=== PATIENT | female | born 1955 | race Caucasian/White ===

== ENCOUNTER → 2016-10-12 | Outpatient (CLI) | payer OTHER ==
--- NOTE | 2016-10-12 17:11 | DX ---
Right Hand - Two Views Indication: Arthritis. Flaring pain. Technique: PA and oblique view. Comparison: Right hand series dated October 31, 2015. Findings: The right 5th proximal interphalangeal joint has worsening erosive osteoarthritis evidence d by gullwing deformities and exuberant osteophytes and severe joint space narrowing. Erosive arthri tis involving the distal interphalangeal joint of the 2nd and 3rd fingers and 1st metacarpocarpal karley nt are unchanged. Impression: Erosive osteoarthritis with progression of disease at the right 5th PIP joint.
== END ==
LOC: BMCIMAGING 16:31
PROVIDERS: ATTEND Internal Medicine Rheumatology
DX: M19.041 Primary osteoarthritis, right hand (principal)

== ENCOUNTER → 2017-03-07 | Outpatient (CLI) | payer OTHER | LOC: FIMAGING 14:31 | PROVIDERS: ATTEND Family Medicine | DX: Z12.31 Encounter for screening mammogram for malignant neoplasm of breast (principal) | CPT/HCPCS: G0202 ==

== ENCOUNTER → 2017-05-23 | Outpatient (CLI) | payer OTHER | LOC: FIMAGING 14:31 | PROVIDERS: ATTEND Family Medicine | DX: Z13.820 Encounter for screening for osteoporosis (principal); M81.0 Age-related osteoporosis without current pathological fracture; E03.9 Hypothyroidism, unspecified; M54.9 Dorsalgia, unspecified; Z82.62 Family history of osteoporosis; Z87.81 Personal history of (healed) traumatic fracture; Z79.899 Other long term (current) drug therapy ==

== ENCOUNTER → 2018-03-08 | Outpatient (CLI) | payer OTHER | LOC: FIMAGING 14:52 | PROVIDERS: ATTEND Family Medicine | DX: Z12.31 Encounter for screening mammogram for malignant neoplasm of breast (principal) ==

== ENCOUNTER → 2018-03-17 | Outpatient (CLI) | payer OTHER | LOC: FIMAGING 11:47 | PROVIDERS: ATTEND Family Medicine | DX: N60.11 Diffuse cystic mastopathy of right breast (principal); R92.8 Other abnormal and inconclusive findings on diagnostic imaging of breast ==

== ENCOUNTER → 2018-07-04 | Outpatient (CLI) | payer OTHER | LOC: FIMAGING 08:23 | PROVIDERS: ATTEND Internal Medicine Endocrinology, Diabetes & Metabolism | DX: Z13.820 Encounter for screening for osteoporosis (principal); M85.832 Other specified disorders of bone density and structure, left forearm ==